=== PATIENT | male | born 1995 | race Caucasian/White ===

== ENCOUNTER 2022-03-27 09:07 | Emergency (ER) | payer OTHER ==
[2022-03-27 09:15] VITALS: BP 160/94; PULSE 77; RESP 20; TEMP 98.7; BMI 29.0
[2022-03-27] MEDS ORDERED: PENICILLIN G BENZATHINE 2,400,000 UNIT/4 ML PFS IM ONE (09:34)
[2022-03-27] MEDS ORDERED: LIDOCAINE HCL 1%, 10 MG/ML (50 mL VIAL) SQ ONE (09:52)
[2022-03-27 10:15] LABS: EPI CELLS 5 /uL (0-25.1); HYALINE CASTS 2 /uL (0-3.1); PH,URINE 5.5 (5.0-8.0); URINE APPEARANCE CLEAR; URINE BACTERIA 2 /uL (0-1359); URINE BILIRUBIN NEGATIVE (NEGATIVE); URINE COLOR YELLOW; URINE GLUCOSE (UA) NEGATIVE (NEGATIVE); URINE KETONE NEGATIVE (NEGATIVE); URINE LEUK ESTERASE NEGATIVE (NEGATIVE); URINE NITRITE NEGATIVE (NEGATIVE); URINE PROTEIN NEGATIVE (NEGATIVE); URINE RBC 47 /uL (0-23.9); URINE UROBILINOGEN 0.2 mg/dL (0.2-1.0); URINE WBC 19 /uL (0-25.8)
== END 2022-03-27 10:51 | disposition home or self-care (01) ==
LOC: JERFT 09:07
DX: N50.9 Disorder of male genital organs, unspecified (principal)
CPT/HCPCS: 36415; 81003; 86780; 87086; 87491; 87529; 87591; 87661; 99284-25

== ENCOUNTER 2022-03-30 13:06 | Emergency (ER) | payer OTHER ==
[2022-03-30 13:33] VITALS: BP 147/84; PULSE 95; RESP 17; TEMP 98.2; BMI 29.8
== END 2022-03-30 14:38 | disposition home or self-care (01) ==
LOC: JERFT 13:06 → JER 13:06 → JERFT 14:38
DX: N48.89 Other specified disorders of penis (principal)
CPT/HCPCS: 87070; 87205; 99283-25

== ENCOUNTER 2022-09-18 00:12 | Emergency (ER) | payer OTHER ==
[2022-09-18 00:19] VITALS: BP 140/79; PULSE 86; RESP 17; TEMP 98.5; BMI 28.2
[2022-09-18] MEDS ORDERED: DOXYCYCLINE HYCLATE 100 MG CAPSULE PO ONE ×2 (01:35→01:38)
[2022-09-18 02:26] LABS: EPI CELLS 1 /uL (0-25.1); HYALINE CASTS 0 /uL (0-3.1); URINE APPEARANCE CLEAR; URINE BACTERIA 48 /uL (0-1359); URINE BILIRUBIN NEGATIVE (NEGATIVE); URINE COLOR YELLOW; URINE GLUCOSE (UA) NEGATIVE (NEGATIVE); URINE KETONE TRACE (NEGATIVE); URINE LEUK ESTERASE 2+ (NEGATIVE); URINE NITRITE NEGATIVE (NEGATIVE); URINE PROTEIN TRACE (NEGATIVE); URINE RBC 74 /uL (0-23.9); URINE WBC 1571 /uL (0-25.8)
== END 2022-09-18 02:47 | disposition home or self-care (01) ==
LOC: JERFT 00:12 → JER 00:12
DX: R30.0 Dysuria (principal); R36.9 Urethral discharge, unspecified; N34.2 Other urethritis
CPT/HCPCS: 36415; 81003; 87086; 87491; 87591; 99284-25

== ENCOUNTER 2022-12-14 20:04 | Emergency (ER) | payer OTHER ==
[2022-12-14 20:12] VITALS: BP 126/81; PULSE 61; RESP 18; TEMP 98.2; BMI 29.0
[2022-12-14] MEDS ORDERED: ACETAMINOPHEN 500 MG TABLET (FP) PO ONE (20:50)
[2022-12-14] MEDS ORDERED: ACETAMINOPHEN 500 MG TABLET (FP) ONE (21:27)
== END 2022-12-14 22:44 | disposition home or self-care (01) ==
LOC: JERFT 20:04
DX: S52.91XA Unspecified fracture of right forearm, initial encounter for closed fracture (principal); M79.631 Pain in right forearm; W01.0XXA Fall on same level from slipping, tripping and stumbling without subsequent striking against object, initial encounter; Y92.009 Unspecified place in unspecified non-institutional (private) residence as the place of occurrence of the external cause
CPT/HCPCS: 73060-TC-RT-FY; 73070-TC-RT-FY; 73090-TC-RT-FY; 73110-TC-RT-FY; 73130-TC-RT-FY; 99283-25

== ENCOUNTER 2023-07-16 23:39 | Emergency (ER) | payer OTHER ==
[2023-07-16 23:46] VITALS: BP 114/76; PULSE 85; RESP 20; TEMP 98.3; BMI 29.8
[2023-07-17] MEDS: ACETAMINOPHEN 500 MG TABLET (FP) PO ONE (01:05)
[2023-07-17] MEDS: LIDOCAINE 4% PATCH TP ONE (01:15)
[2023-07-17] MEDS: KETOROLAC TROMETHAMINE 30 MG/1 ML VIAL IM ONE (02:42)
[2023-07-17] MEDS ORDERED: ACETAMINOPHEN 325 MG TABLET (FP) ONE (02:45)
[2023-07-17] MEDS ORDERED: LIDOCAINE 4% PATCH TP ONE (02:46)
[2023-07-17] MEDS ORDERED: KETOROLAC TROMETHAMINE 30 MG/1 ML VIAL ONE (02:46)
[2023-07-17] MEDS ORDERED: LIDOCAINE PATCH REMOVAL MC SCH (22:00)
== END 2023-07-17 04:33 | disposition home or self-care (01) ==
LOC: JER 23:39
PROC: 3E0233Z Introduction of Anti-inflammatory into Muscle, Percutaneous Approach (ICD-10-PCS; principal; 2023-07-17)
DX: S90.31XA Contusion of right foot, initial encounter (principal); M79.671 Pain in right foot; M54.2 Cervicalgia; V09.20XA Pedestrian injured in traffic accident involving unspecified motor vehicles, initial encounter; W01.198A Fall on same level from slipping, tripping and stumbling with subsequent striking against other object, initial encounter; Y92.410 Unspecified street and highway as the place of occurrence of the external cause
CPT/HCPCS: 70450-TC; 70486-TC; 72125-TC; 73562-TC-RT-FY; 73590-TC-RT-FY; 73610-TC-RT-FY; 73630-TC-RT-FY; 73700-TC-RT; 99284-25